=== PATIENT | female | born 1985 | race Two or more races ===

== ENCOUNTER 2022-03-26 17:05 | Emergency (ER) | payer OTHER ==
[~2022-03-26] VITALS: Ht 160 cm; Wt 74.8 kg
[2022-03-26] MEDS ORDERED: SYNTHROID125 MCG (17:10)
== END 2022-03-26 21:08 | disposition home or self-care (01) ==
LOC: ER 17:05
DX: O03.9 Complete or unspecified spontaneous abortion without complication (principal)